=== PATIENT | male | born 1955 | race Caucasian/White ===

== ENCOUNTER → 2021-12-04 13:08 | Outpatient (BNVA) | payer MEDICARE, SELFPAY | PROVIDERS: Visit Provider Otolaryngology | DX: H90.41 Sensorineural hearing loss, unilateral, right ear, with unrestricted hearing on the contralateral side (principal) | CPT/HCPCS: 99203 ==

== ENCOUNTER → 2022-01-04 12:06 | Outpatient (BNVA) | payer MEDICARE, SELFPAY | PROVIDERS: Visit Provider Family Medicine | DX: I50.9 Heart failure, unspecified (principal); H90.5 Unspecified sensorineural hearing loss; Z76.89 Persons encountering health services in other specified circumstances; N40.0 Benign prostatic hyperplasia without lower urinary tract symptoms; I10 Essential (primary) hypertension | CPT/HCPCS: 80053; 80061; 84153; 84443; 85025; 86803; 87806 ==

== ENCOUNTER 2022-04-03 09:12 | Outpatient (CLI) | payer BC, MEDICARE, SELFPAY ==
--- NOTE | 2022-04-03 09:21 | MR_ITS ---
WS: [id number] MRI BRAIN WITH HIGH-RESOLUTION IMAGING THROUGH THE INTERNAL AUDITORY CANALS WITHOUT AND WITH CONTRAST HISTORY: UNSPECIFIED SENSORINEURAL HEARING LOSS COMPARISON: None available. TECHNIQUE: Multiplanar, multisequence imaging is performed through the brain. Additional 3 mm imaging performed in multiple planes through the internal auditory canal. Postcontrast imaging with 20 ml's of MultiHance. No acute intracranial hemorrhage, midline shift, edema or mass effect. No diffusion abnormality. No hemorrhage. Mild small vessel ischemic changes in the periventricular wh ite matter. No prior infarct. Ventricles and extra-axial spaces are normal. No inferior displacement of cerebellar tonsils. Clivus and pituitary gland are normal. Internal and external auditory canals: Unremarkable. Cranial nerves VII and VIII complexes: Unremarkable. No enhancement or mass. Cerebellopontine angles: Normal. Paranasal sinuses: Mucous retention cyst RIGHT maxillary sinus. No air-fluid levels. Mastoid air cells: Normal. Calvarium and scalp: Normal. Visualized [place] and dural venous sinuses demonstrate no abnormality. Filling defect consi stent with an arachnoid granulation straight sinus. MR/MR iac's wo/w con* [id number] IMPRESSION: 1. No mass or abnormal enhancement at the cerebellopontine angles or along the internal auditory canals. 2. Very mild small vessel ischemic disease in the white matter. 3. No acute infarct or enhancing mass.
[2022-04-03] MEDS: gadobenate dimeglumine 20 mL vial IV (10:14)
== END 2022-04-03 09:13 | disposition home or self-care (01) ==
LOC: RAD 09:13
PROVIDERS: PCP Family Medicine; Visit Provider Otolaryngology
DX: H90.5 Unspecified sensorineural hearing loss (principal)
CPT/HCPCS: 70553; A9577

== ENCOUNTER → 2022-07-26 09:12 | Outpatient (BNVA) | payer BC, MEDICARE, SELFPAY | PROVIDERS: PCP Family Medicine; Visit Provider Family Medicine | DX: E78.2 Mixed hyperlipidemia (principal); I10 Essential (primary) hypertension; N40.1 Benign prostatic hyperplasia with lower urinary tract symptoms; R39.12 Poor urinary stream | CPT/HCPCS: 80048; 80061; G0103 ==

== ENCOUNTER → 2023-01-28 09:57 | Outpatient (BNVA) | payer BC, MEDICARE, SELFPAY | PROVIDERS: PCP Family Medicine; Visit Provider Family Medicine | DX: I10 Essential (primary) hypertension (principal); R97.20 Elevated prostate specific antigen [PSA]; Z80.42 Family history of malignant neoplasm of prostate; E78.2 Mixed hyperlipidemia; N40.0 Benign prostatic hyperplasia without lower urinary tract symptoms; Z12.5 Encounter for screening for malignant neoplasm of prostate; N40.1 Benign prostatic hyperplasia with lower urinary tract symptoms; R39.12 Poor urinary stream | CPT/HCPCS: 80053; 80061; 85025; G0103 ==